=== PATIENT | male | born 1965 | race Caucasian/White ===

== ENCOUNTER 2020-04-05 13:27 | Emergency (ER) | payer SELFPAY ==
[~2020-04-05 13:27] MED LIST: ASPI-1822 PO; METO25TA PO; SIMV20TA1 PO
--- NOTE | 2020-04-05 14:41 | NUR ---
pt only wants to redo covid testing---[facility] testing sites sheet handed to pt---pt left
== END 2020-04-05 14:41 | disposition left against medical advice (07) ==
LOC: MED 13:27
DX: M79.10 Myalgia, unspecified site (principal); Z53.21 Procedure and treatment not carried out due to patient leaving prior to being seen by health care provider